=== PATIENT | male | born 1995 ===

== ENCOUNTER 2017-04-25 13:05 | Emergency (ER) | payer SELFPAY ==
[~2017-04-25] VITALS: Ht 193 cm; Wt 136.1 kg
[2017-04-25 13:28] VITALS: BP 160/86; Ht 193 cm; Wt 136.1 kg
== END 2017-04-25 17:31 | disposition home or self-care (01) ==
LOC: ED 13:05
DX: J06.9 Acute upper respiratory infection, unspecified (principal); R09.81 Nasal congestion; R09.82 Postnasal drip; R03.0 Elevated blood-pressure reading, without diagnosis of hypertension